=== PATIENT | male | born 1930 | race Caucasian/White ===

== ENCOUNTER 2018-01-18 10:17 | Inpatient (IN) | payer MEDICARE, OTHER, BC ==
[2018-01-18] MEDS ORDERED: ACETAMINOPHEN 325 MG TAB PO (12:30)
[2018-01-18 13:28] LABS: ADD MAN DIFF? NO
[2018-01-18 13:31] LABS: WHITE BLOOD COUNT 16.6 10^3/ul (4.8-10.8)
[2018-01-18 13:31] LABS: BASOPHIL # 0.1 10^3/ul (0.0-0.1); BASOPHILS % 0.4 % (0.0-2.0); EOSINOPHILS # 1.3 10^3/ul (0.0-0.5); EOSINOPHILS % 7.7 % (0.0-7.0); HEMATOCRIT 25.4 % (42.0-52.0); HEMOGLOBIN 8.2 g/dl (14.0-18.0); LYMPHOCYTES # 1.5 10^3/ul (0.8-2.9); LYMPHOCYTES % 8.8 % (15.0-51.0); MEAN CORPUSCULAR HEMOGLOBIN 25.5 pg (29.0-33.0); MEAN CORPUSCULAR HGB CONC 32.3 g/dl (32.0-37.0); MEAN CORPUSCULAR VOLUME 78.9 fl (82.0-101.0); MEAN PLATELET VOLUME 9.1 fl (7.4-10.4); MONOCYTE # 1.2 10^3/ul (0.3-0.9); MONOCYTES % 6.9 % (0.0-11.0); NEUTROPHIL # 12.6 10^3/ul (1.6-7.5); NEUTROPHILS % 75.7 % (39.0-77.0); PLATELET COUNT 407 10^3/UL (140-415); RED BLOOD COUNT 3.22 10^6/ul (4.70-6.10); RED CELL DISTRIBUTION WIDTH 16.3 % (11.5-14.5)
[2018-01-18 13:49] LABS: ALANINE AMINOTRANSFERASE 36 IU/L (13-69); ALBUMIN 2.4 g/dl (3.3-4.9); ALBUMIN/GLOBULIN RATIO 0.82; ALKALINE PHOSPHATASE 162 IU/L (42-121); ANION GAP 11 (8-16); ASPARTATE AMINO TRANSFERASE 21 IU/L (15-46); BLOOD UREA NITROGEN 19 mg/dl (7-20); CALCIUM 8.2 mg/dl (8.4-10.2); CARBON DIOXIDE 28 mmol/L (21-31); CHLORIDE 93 mmol/L (97-110); CREATININE 0.83 mg/dl (0.61-1.24); GLUCOSE 96 mg/dl (70-220); POTASSIUM 4.8 mmol/L (3.5-5.1); SODIUM 127 mmol/L (135-144); TOTAL PROTEIN 5.3 g/dl (6.1-8.1)
[2018-01-18 13:59] LABS: INR 1.18; PROTIME 15.2 Sec (11.9-14.9); PT RATIO 1.2
[2018-01-18 14:00] LABS: PARTIAL THROMBOPLASTIN TIME 34.6 Sec (25.0-35.0)
[2018-01-18] MEDS: EPOETIN 10000 UNITS/ML VIAL (ONCOLOGY) SC (14:09)
[2018-01-18] MEDS ORDERED: IOHEXOL 14.3 MG(I)/ML (ADULT) BTL PO (18:30)
[2018-01-18] MEDS: TRIAMCINOLONE ACET 0.025% 15 GM CR TOP (20:58)
[2018-01-18] MEDS: ATORVASTATIN 40 MG TAB PO (20:58)
[2018-01-18] MEDS: LATANOPROST 0.005% 2.5 ML OPH BOTH EYES (20:58)
[2018-01-18] MEDS: DORZOLAMIDE/TIMOLOL/PF 0.2 ML DROPERETTE BOTH EYES (21:00)
[2018-01-18] MEDS: DOXAZOSIN 2 MG TAB PO (21:00)
[2018-01-18 21:22] LABS: IRON 17 ug/dl (35-150); URIC ACID 3.9 mg/dl (3.1-7.9)
[2018-01-18 21:22] LABS: LACTATE DEHYDROGENASE 319 IU/L (313-618)
[2018-01-18 21:32] LABS: % IRON SATURATION 7 % SAT (22-52); TOTAL IRON BINDING CAPACITY 235 ug/dl (241-421)
[2018-01-18 21:35] LABS: IMMUNOGLOBULIN A 319 mg/dl (70-400); IMMUNOGLOBULIN G 955 mg/dl (700-1600); IMMUNOGLOBULIN M 48 mg/dl (40-230)
[2018-01-18 21:53] LABS: PROSTATE SPECIFIC ANTIGEN 4.4 ng/ml (0.0-4.0)
[2018-01-18 21:57] LABS: CARCINOEMBRYONIC ANTIGEN 25.7 ng/ml (0.0-5.0)
[2018-01-18 22:00] LABS: CANCER ANTIGEN 19-9 53.5 U/ml (0.0-37.0)
[2018-01-18 22:26] LABS: ADD UMIC NO; UR ASCORBIC ACID NEGATIVE (NEGATIVE); UR BACTERIA FEW /HPF (NONE SEEN); UR BILIRUBIN (Dip) NEGATIVE (NEGATIVE); UR BLOOD (Dip) NEGATIVE (NEGATIVE); UR CLARITY SLIGHTLY CLOUDY (CLEAR); UR COLOR YELLOW (YELLOW); UR GLUCOSE (Dip) NEGATIVE (NEGATIVE); UR KETONES (Dip) NEGATIVE (NEGATIVE); UR LEUKOCYTE ESTERASE (Dip) NEGATIVE Leu/ul (NEGATIVE); UR NITRITE (Dip) NEGATIVE (NEGATIVE); UR RBC 0 /HPF (0-5); UR SQUAMOUS EPITHELIAL CELL FEW /HPF (FEW); UR TOTAL PROTEIN (Dip) NEGATIVE (NEGATIVE); UR UROBILINOGEN (Dip) NEGATIVE (NEGATIVE); UR WBC 2 /HPF (0-5)
[2018-01-18 22:35] LABS: FERRITIN 31.6 ng/ml (11.1-264.0)
[2018-01-19] MEDS: PANTOPRAZOLE (EC) 40 MG TAB PO (06:01)
[2018-01-19] MEDS: TRIAMCINOLONE ACET 0.025% 15 GM CR TOP ×2 (08:13→21:42)
[2018-01-19] MEDS: DORZOLAMIDE/TIMOLOL/PF 0.2 ML DROPERETTE BOTH EYES ×2 (08:13→21:43)
[2018-01-19] MEDS: METOPROLOL 50 MG TAB PO (08:19)
[2018-01-19 11:31] LABS: ADD MAN DIFF? NO
[2018-01-19 11:34] LABS: BASOPHIL # 0.1 10^3/ul (0.0-0.1); BASOPHILS % 0.4 % (0.0-2.0); EOSINOPHILS # 1.2 10^3/ul (0.0-0.5); EOSINOPHILS % 7.8 % (0.0-7.0); HEMOGLOBIN 8.1 g/dl (14.0-18.0); LYMPHOCYTES % 6.5 % (15.0-51.0); MEAN CORPUSCULAR HEMOGLOBIN 25.7 pg (29.0-33.0); MEAN CORPUSCULAR HGB CONC 32.4 g/dl (32.0-37.0); MEAN CORPUSCULAR VOLUME 79.4 fl (82.0-101.0); MEAN PLATELET VOLUME 8.9 fl (7.4-10.4); MONOCYTE # 1.3 10^3/ul (0.3-0.9); MONOCYTES % 8.1 % (0.0-11.0); NEUTROPHIL # 12.2 10^3/ul (1.6-7.5); NEUTROPHILS % 76.6 % (39.0-77.0); PLATELET COUNT 382 10^3/UL (140-415); RED BLOOD COUNT 3.15 10^6/ul (4.70-6.10); RED CELL DISTRIBUTION WIDTH 16.2 % (11.5-14.5)
[2018-01-19 11:34] LABS: WHITE BLOOD COUNT 15.9 10^3/ul (4.8-10.8)
[2018-01-19 11:52] LABS: ANION GAP 10 (8-16); BLOOD UREA NITROGEN 19 mg/dl (7-20); CALCIUM 7.9 mg/dl (8.4-10.2); CARBON DIOXIDE 27 mmol/L (21-31); CHLORIDE 94 mmol/L (97-110); CREATININE 0.79 mg/dl (0.61-1.24); GLUCOSE 117 mg/dl (70-220); MAGNESIUM 1.8 mg/dl (1.7-2.5); SODIUM 127 mmol/L (135-144)
[2018-01-19 14:38] LABS: OCCULT BLOOD STOOL POSITIVE (NEGATIVE)
[2018-01-19] MEDS: BISACODYL (EC) 5 MG TAB PO (15:11)
[2018-01-19] MEDS: MAGNESIUM CITRATE 300 ML BTL PO (16:00)
[2018-01-19] MEDS: POLYETHYLENE GLYCOL 3350 119 GM POWDER PO (18:07)
[2018-01-19] MEDS: LATANOPROST 0.005% 2.5 ML OPH BOTH EYES (21:42)
[2018-01-19] MEDS: PIPER-TAZO 3.375 GM IV (PMX) 100 ML IVPB (21:42)
[2018-01-19] MEDS: DOXAZOSIN 2 MG TAB PO (21:43)
[2018-01-19] MEDS: ATORVASTATIN 40 MG TAB PO (21:43)
[2018-01-20 05:22] LABS: PROTEIN, TOTAL 4.9 g/dL (6.1-8.1)
[2018-01-20] MEDS: POLYETHYLENE GLYCOL 3350 119 GM POWDER PO (06:07)
[2018-01-20] MEDS: PANTOPRAZOLE (EC) 40 MG TAB PO (06:07)
[2018-01-20] MEDS: PIPER-TAZO 3.375 GM IV (PMX) 100 ML IVPB ×3 (06:07→21:21)
[2018-01-20] MEDS: BISACODYL (EC) 5 MG TAB PO (06:07)
[2018-01-20 09:08] LABS: ADD MAN DIFF? NO
[2018-01-20 09:12] LABS: WHITE BLOOD COUNT 14.5 10^3/ul (4.8-10.8)
[2018-01-20 09:12] LABS: BASOPHIL # 0.1 10^3/ul (0.0-0.1); BASOPHILS % 0.6 % (0.0-2.0); EOSINOPHILS # 1.2 10^3/ul (0.0-0.5); EOSINOPHILS % 8.1 % (0.0-7.0); HEMATOCRIT 25.4 % (42.0-52.0); HEMOGLOBIN 8.1 g/dl (14.0-18.0); LYMPHOCYTES # 1.3 10^3/ul (0.8-2.9); LYMPHOCYTES % 8.9 % (15.0-51.0); MEAN CORPUSCULAR HEMOGLOBIN 25.1 pg (29.0-33.0); MEAN CORPUSCULAR HGB CONC 31.9 g/dl (32.0-37.0); MEAN CORPUSCULAR VOLUME 78.6 fl (82.0-101.0); MEAN PLATELET VOLUME 9.1 fl (7.4-10.4); MONOCYTE # 1.1 10^3/ul (0.3-0.9); MONOCYTES % 7.5 % (0.0-11.0); NEUTROPHIL # 10.8 10^3/ul (1.6-7.5); NEUTROPHILS % 74.4 % (39.0-77.0); PLATELET COUNT 416 10^3/UL (140-415); RED BLOOD COUNT 3.23 10^6/ul (4.70-6.10); RED CELL DISTRIBUTION WIDTH 16.6 % (11.5-14.5)
[2018-01-20 09:33] LABS: ANION GAP 11 (8-16); BLOOD UREA NITROGEN 16 mg/dl (7-20); CARBON DIOXIDE 28 mmol/L (21-31); CHLORIDE 94 mmol/L (97-110); CREATININE 0.86 mg/dl (0.61-1.24); GLUCOSE 81 mg/dl (70-220); MAGNESIUM 1.9 mg/dl (1.7-2.5); SODIUM 129 mmol/L (135-144)
[2018-01-20] MEDS: METOPROLOL 50 MG TAB PO (09:41)
[2018-01-20] MEDS: DORZOLAMIDE/TIMOLOL/PF 0.2 ML DROPERETTE BOTH EYES ×2 (09:41→21:21)
[2018-01-20] MEDS: TRIAMCINOLONE ACET 0.025% 15 GM CR TOP ×2 (09:42→21:21)
[2018-01-20 16:05] LABS: ALBUMIN 2.1 g/dL (3.8-4.8); ALPHA-1-GLOBULINS 0.6 g/dL (0.2-0.3); ALPHA-2-GLOBULINS 0.6 g/dL (0.5-0.9); BETA 2 GLOBULINS 0.4 g/dL (0.2-0.5); BETA GLOBULINS 0.4 g/dL (0.4-0.6)
[2018-01-20 16:47] LABS: BETA-2 MICROGLOBULIN 4.41 mg/L (< OR = 2.51)
[2018-01-20] MEDS: DOXAZOSIN 2 MG TAB PO (21:00)
[2018-01-20] MEDS: ATORVASTATIN 40 MG TAB PO (21:21)
[2018-01-20] MEDS: LATANOPROST 0.005% 2.5 ML OPH BOTH EYES (21:23)
[2018-01-21] MEDS: PANTOPRAZOLE (EC) 40 MG TAB PO (05:48)
[2018-01-21] MEDS: PIPER-TAZO 3.375 GM IV (PMX) 100 ML IVPB ×2 (05:49→13:12)
[2018-01-21] MEDS ORDERED: ACETAMINOPHEN 1000 MG/100 ML IVPB (07:00)
[2018-01-21] MEDS ORDERED: ALBUMIN HUMAN 5% 250 ML INJ (07:00)
[2018-01-21] MEDS: PROPOFOL 20 ML (08:37)
[2018-01-21] MEDS: DORZOLAMIDE/TIMOLOL/PF 0.2 ML DROPERETTE BOTH EYES ×2 (08:38→21:00)
[2018-01-21] MEDS: METOPROLOL 50 MG TAB PO (08:38)
[2018-01-21] MEDS: TRIAMCINOLONE ACET 0.025% 15 GM CR TOP ×2 (08:38→21:00)
[2018-01-21] MEDS: DIPHENHYDRAMINE 50 MG INJ IV (11:01)
[2018-01-21] MEDS: ACETAMINOPHEN 325 MG TAB PO (11:01)
[2018-01-21] MEDS ORDERED: PROPOFOL 20 ML (17:38)
[2018-01-21] MEDS ORDERED: FENTAnyl 50 MCG/ML VIAL (17:38)
[2018-01-21] MEDS ORDERED: MIDAZOLAM 1 MG/ML 2 ML INJ (17:38)
[2018-01-21] MEDS ORDERED: ROCURONIUM 50 MG INJ ×3 (17:38→19:58)
[2018-01-21] MEDS ORDERED: BUPIVACAINE 0.5% (SDV) 30 ML INJ (18:28)
[2018-01-21] MEDS ORDERED: LIDOCAINE 1%/EPI 30 ML INJ (18:28)
[2018-01-21 18:41] LABS: IMMEDIATE SPIN CROSSMATCH 1 2
[2018-01-21] MEDS ORDERED: PHENYLephrine (100 MCG/ML) 5ML SYG (19:27)
[2018-01-21] MEDS ORDERED: morphine SULFATE/PF (10 MG/10 ML) INJ (19:27)
[2018-01-21] MEDS ORDERED: ONDANSETRON 4 MG INJ (19:31)
[2018-01-21] MEDS ORDERED: DEXAMETHASONE 4 MG/ML 1 ML INJ (19:31)
[2018-01-21] MEDS ORDERED: METOCLOPRAMIDE 10 MG INJ (19:31)
[2018-01-21] MEDS ORDERED: ROPIVACAINE 0.2% 20 ML VIAL (19:31)
[2018-01-21] MEDS ORDERED: NALOXONE (0.4 MG/ML) INJ IV (20:30)
[2018-01-21] MEDS ORDERED: ONDANSETRON 4 MG INJ IV ×2 (20:30)
[2018-01-21] MEDS ORDERED: HYDROmorphONE 0.5 MG/0.5 ML SYG IV ×2 (20:30)
[2018-01-21] MEDS ORDERED: METOCLOPRAMIDE 10 MG INJ IV (20:30)
[2018-01-21] MEDS ORDERED: HYDROmorphONE (0.2 MG/ML) 10ML SYG IV ×3 (20:30)
[2018-01-21] MEDS ORDERED: EPHEDrine SULFATE 50 MG/5 ML SYG IV (20:30)
[2018-01-21] MEDS ORDERED: DIPHENHYDRAMINE 50 MG INJ IV ×2 (20:30)
[2018-01-21] MEDS ORDERED: NALBUPHINE HCL (10 MG/1 ML) INJ IV (20:30)
[2018-01-21] MEDS ORDERED: FENTAnyl 50 MCG/ML VIAL IV ×3 (20:30)
[2018-01-21] MEDS ORDERED: MEPERIDINE 25 MG INJ IV (20:30)
[2018-01-21] MEDS ORDERED: morphine 2 MG INJ IV ×2 (20:30)
[2018-01-21] MEDS ORDERED: hydrALAzine 20 MG INJ IV (20:30)
[2018-01-21] MEDS ORDERED: LABETALOL HCL 20MG INJ IV (20:30)
[2018-01-21] MEDS: DOXAZOSIN 2 MG TAB PO (21:00)
[2018-01-21] MEDS: LATANOPROST 0.005% 2.5 ML OPH BOTH EYES (21:00)
[2018-01-21] MEDS ORDERED: SUGAMMADEX SODIUM 200 MG/2 ML VIAL IV ×2 (21:08→21:10)
[2018-01-21 21:10] LABS: AADO2 Arterial 257.9 mmHg (7.0-24.0); Allen Test ACCEPTAB; Arterial Base Excess -5.3 mmol/L (-3.0-3); Arterial Blood Gas Oxygen Sat 99.2 mmHG (95.0-100.0); Arterial COHb 0.7 % (0.0-3.0); Arterial Fraction of Oxyhgb 98.3 % (93.0-99.0); Arterial HCO3 21.3 mmol/L (22.0-26.0); Arterial MetHb 0.2 % (0.0-1.5); Arterial Total Hemglobin 10.1 g/dl (12.0-18.0); Arterial pCO2 46.3 mmhg (35-45); MODE ANESTH - VENT; Site A-Line
[2018-01-21] MEDS: ACETAMINOPHEN 1000MG/100ML IV 100 ML IVPB (21:30)
[2018-01-21] MEDS: LIDOCAINE 1%/EPI 30 ML INJ INJ (21:42)
[2018-01-21] MEDS: SODIUM CHLORIDE 0.9% 1L IRRIG IRR (21:42)
[2018-01-21] MEDS: BUPIVACAINE 0.5% (MPF) 30 ML INJ INJ (21:42)
[2018-01-21 22:05] LABS: ADD MAN DIFF? NO
[2018-01-21 22:07] LABS: BASOPHILS % 0.3 % (0.0-2.0); EOSINOPHILS # 0.2 10^3/ul (0.0-0.5); EOSINOPHILS % 1.6 % (0.0-7.0); HEMATOCRIT 28.2 % (42.0-52.0); HEMOGLOBIN 9.4 g/dl (14.0-18.0); LYMPHOCYTES # 0.7 10^3/ul (0.8-2.9); LYMPHOCYTES % 5.8 % (15.0-51.0); MEAN CORPUSCULAR HEMOGLOBIN 26.7 pg (29.0-33.0); MEAN CORPUSCULAR HGB CONC 33.3 g/dl (32.0-37.0); MEAN CORPUSCULAR VOLUME 80.1 fl (82.0-101.0); MEAN PLATELET VOLUME 8.4 fl (7.4-10.4); MONOCYTE # 0.3 10^3/ul (0.3-0.9); MONOCYTES % 2.5 % (0.0-11.0); NEUTROPHIL # 10.6 10^3/ul (1.6-7.5); NEUTROPHILS % 89.4 % (39.0-77.0); PLATELET COUNT 286 10^3/UL (140-415); RED BLOOD COUNT 3.52 10^6/ul (4.70-6.10); RED CELL DISTRIBUTION WIDTH 15.7 % (11.5-14.5)
[2018-01-21 22:07] LABS: WHITE BLOOD COUNT 11.8 10^3/ul (4.8-10.8)
[2018-01-21 22:26] LABS: ANION GAP 12 (8-16); BLOOD UREA NITROGEN 13 mg/dl (7-20); CARBON DIOXIDE 20 mmol/L (21-31); CHLORIDE 102 mmol/L (97-110); CREATININE 0.78 mg/dl (0.61-1.24); GLUCOSE 82 mg/dl (70-220); POTASSIUM 3.4 mmol/L (3.5-5.1); SODIUM 131 mmol/L (135-144)
[2018-01-22] MEDS: PIPER-TAZO 3.375 GM IV (PMX) 100 ML IVPB ×4 (00:42→22:08)
[2018-01-22 06:11] LABS: ADD MAN DIFF? NO
[2018-01-22 06:13] LABS: BASOPHILS % 0.2 % (0.0-2.0); EOSINOPHILS % 0.1 % (0.0-7.0); HEMATOCRIT 32.1 % (42.0-52.0); HEMOGLOBIN 10.3 g/dl (14.0-18.0); LYMPHOCYTES # 1.1 10^3/ul (0.8-2.9); LYMPHOCYTES % 9.5 % (15.0-51.0); MEAN CORPUSCULAR HEMOGLOBIN 26.3 pg (29.0-33.0); MEAN CORPUSCULAR HGB CONC 32.1 g/dl (32.0-37.0); MEAN CORPUSCULAR VOLUME 82.1 fl (82.0-101.0); MEAN PLATELET VOLUME 8.8 fl (7.4-10.4); MONOCYTE # 0.2 10^3/ul (0.3-0.9); NEUTROPHIL # 9.8 10^3/ul (1.6-7.5); NEUTROPHILS % 87.7 % (39.0-77.0); PLATELET COUNT 331 10^3/UL (140-415); RED BLOOD COUNT 3.91 10^6/ul (4.70-6.10); RED CELL DISTRIBUTION WIDTH 15.9 % (11.5-14.5)
[2018-01-22 06:13] LABS: WHITE BLOOD COUNT 11.2 10^3/ul (4.8-10.8)
[2018-01-22] MEDS: FENTAnyl 2MCG/ML-ROPIV 0.2% 100 ML BAG EPI ×2 (06:22→22:56)
[2018-01-22 06:36] LABS: ANION GAP 14 (8-16); BLOOD UREA NITROGEN 13 mg/dl (7-20); CALCIUM 7.4 mg/dl (8.4-10.2); CARBON DIOXIDE 22 mmol/L (21-31); CHLORIDE 102 mmol/L (97-110); CREATININE 0.88 mg/dl (0.61-1.24); GLUCOSE 81 mg/dl (70-220); POTASSIUM 3.7 mmol/L (3.5-5.1); SODIUM 134 mmol/L (135-144)
[2018-01-22] MEDS: PANTOPRAZOLE 40 MG INJ IV (06:38)
[2018-01-22] MEDS: ACETAMINOPHEN 1000MG/100ML IV 100 ML IVPB ×4 (06:38→21:54)
[2018-01-22] MEDS: DORZOLAMIDE/TIMOLOL/PF 0.2 ML DROPERETTE BOTH EYES ×2 (09:00→21:50)
[2018-01-22] MEDS: TRIAMCINOLONE ACET 0.025% 15 GM CR TOP ×2 (09:00→21:52)
[2018-01-22] MEDS: METOPROLOL 50 MG TAB PO (10:15)
[2018-01-22] MEDS: DEXTROSE 5%-0.45% NACL 1,000 ML IV (13:54)
[2018-01-22] MEDS: DOXAZOSIN 2 MG TAB PO (21:00)
[2018-01-22] MEDS: LATANOPROST 0.005% 2.5 ML OPH BOTH EYES (21:42)
[2018-01-22 23:07] LABS: ADD UMIC YES; UR ASCORBIC ACID NEGATIVE (NEGATIVE); UR BILIRUBIN (Dip) NEGATIVE (NEGATIVE); UR BLOOD (Dip) 2+ mg/dL (NEGATIVE); UR CLARITY CLEAR (CLEAR); UR COLOR YELLOW (YELLOW); UR GLUCOSE (Dip) NEGATIVE (NEGATIVE); UR KETONES (Dip) 1+ mg/dL (NEGATIVE); UR LEUKOCYTE ESTERASE (Dip) NEGATIVE Leu/ul (NEGATIVE); UR NITRITE (Dip) NEGATIVE (NEGATIVE); UR RBC 22 /HPF (0-5); UR SPECIFIC GRAVITY (Dip) 1.035 (1.003-1.030); UR TOTAL PROTEIN (Dip) NEGATIVE (NEGATIVE); UR UROBILINOGEN (Dip) NEGATIVE (NEGATIVE); UR WBC 11 /HPF (0-5)
[2018-01-23] MEDS: ACETAMINOPHEN 1000MG/100ML IV 100 ML IVPB ×4 (03:10→21:55)
[2018-01-23] MEDS: DEXTROSE 5%-0.45% NACL 1,000 ML IV ×3 (04:02→19:57)
[2018-01-23 06:43] LABS: ADD MAN DIFF? NO
[2018-01-23 06:47] LABS: BASOPHIL # 0.1 10^3/ul (0.0-0.1); BASOPHILS % 0.7 % (0.0-2.0); EOSINOPHILS # 0.4 10^3/ul (0.0-0.5); EOSINOPHILS % 4.6 % (0.0-7.0); HEMATOCRIT 29.2 % (42.0-52.0); HEMOGLOBIN 9.4 g/dl (14.0-18.0); LYMPHOCYTES % 12.3 % (15.0-51.0); MEAN CORPUSCULAR HEMOGLOBIN 26.2 pg (29.0-33.0); MEAN CORPUSCULAR HGB CONC 32.2 g/dl (32.0-37.0); MEAN CORPUSCULAR VOLUME 81.3 fl (82.0-101.0); MEAN PLATELET VOLUME 8.7 fl (7.4-10.4); MONOCYTE # 0.6 10^3/ul (0.3-0.9); MONOCYTES % 7.4 % (0.0-11.0); NEUTROPHIL # 6.1 10^3/ul (1.6-7.5); NEUTROPHILS % 74.6 % (39.0-77.0); PLATELET COUNT 290 10^3/UL (140-415); RED BLOOD COUNT 3.59 10^6/ul (4.70-6.10); RED CELL DISTRIBUTION WIDTH 16.4 % (11.5-14.5)
[2018-01-23 06:47] LABS: WHITE BLOOD COUNT 8.2 10^3/ul (4.8-10.8)
[2018-01-23] MEDS: PANTOPRAZOLE 40 MG INJ IV (06:48)
[2018-01-23] MEDS: PIPER-TAZO 3.375 GM IV (PMX) 100 ML IVPB ×3 (06:48→21:55)
[2018-01-23 07:10] LABS: ALANINE AMINOTRANSFERASE 31 IU/L (13-69); ALBUMIN 1.9 g/dl (3.3-4.9); ALBUMIN/GLOBULIN RATIO 0.79; ALKALINE PHOSPHATASE 121 IU/L (42-121); ANION GAP 11 (8-16); ASPARTATE AMINO TRANSFERASE 16 IU/L (15-46); BLOOD UREA NITROGEN 18 mg/dl (7-20); CALCIUM 7.3 mg/dl (8.4-10.2); CARBON DIOXIDE 22 mmol/L (21-31); CHLORIDE 102 mmol/L (97-110); CREATININE 1.13 mg/dl (0.61-1.24); GLUCOSE 115 mg/dl (70-220); POTASSIUM 3.7 mmol/L (3.5-5.1); SODIUM 131 mmol/L (135-144); TOTAL PROTEIN 4.3 g/dl (6.1-8.1)
[2018-01-23 07:12] LABS: B-TYPE NATRIURETIC PEPTIDE 2000 PG/ML (0-450)
[2018-01-23] MEDS: TRIAMCINOLONE ACET 0.025% 15 GM CR TOP ×2 (09:35→21:00)
[2018-01-23] MEDS: DORZOLAMIDE/TIMOLOL/PF 0.2 ML DROPERETTE BOTH EYES ×2 (09:35→21:55)
[2018-01-23] MEDS: FUROSEMIDE 20 MG INJ IV (09:46)
[2018-01-23] MEDS: SODIUM CHLORIDE 0.45% 500 ML BAG IV* (09:46)
[2018-01-23] MEDS ORDERED: ENOXAPARIN 40 MG/0.4 ML SYG SC (11:00)
[2018-01-23] MEDS: FENTAnyl 2MCG/ML-ROPIV 0.2% 100 ML BAG EPI (15:43)
[2018-01-23] MEDS: DOXAZOSIN 2 MG TAB PO (21:00)
[2018-01-23] MEDS: LATANOPROST 0.005% 2.5 ML OPH BOTH EYES (21:55)
[2018-01-24] MEDS: ACETAMINOPHEN 1000MG/100ML IV 100 ML IVPB ×4 (03:36→22:05)
[2018-01-24] MEDS: PANTOPRAZOLE 40 MG INJ IV (05:37)
[2018-01-24] MEDS: PIPER-TAZO 3.375 GM IV (PMX) 100 ML IVPB ×3 (05:37→22:04)
[2018-01-24] MEDS: DEXTROSE 5%-0.45% NACL 1,000 ML IV ×3 (05:37→22:04)
[2018-01-24] MEDS: FENTAnyl 2MCG/ML-ROPIV 0.2% 100 ML BAG EPI ×2 (06:57→23:04)
[2018-01-24] MEDS: FUROSEMIDE 20 MG INJ IV (08:00)
[2018-01-24 08:24] LABS: ADD MAN DIFF? NO
[2018-01-24 08:44] LABS: BASOPHIL # 0.1 10^3/ul (0.0-0.1); BASOPHILS % 0.7 % (0.0-2.0); EOSINOPHILS # 0.5 10^3/ul (0.0-0.5); EOSINOPHILS % 5.5 % (0.0-7.0); HEMATOCRIT 29.4 % (42.0-52.0); HEMOGLOBIN 9.2 g/dl (14.0-18.0); LYMPHOCYTES # 1.2 10^3/ul (0.8-2.9); LYMPHOCYTES % 13.6 % (15.0-51.0); MEAN CORPUSCULAR HEMOGLOBIN 25.8 pg (29.0-33.0); MEAN CORPUSCULAR HGB CONC 31.3 g/dl (32.0-37.0); MEAN CORPUSCULAR VOLUME 82.6 fl (82.0-101.0); MEAN PLATELET VOLUME 9.2 fl (7.4-10.4); MONOCYTE # 0.6 10^3/ul (0.3-0.9); MONOCYTES % 6.4 % (0.0-11.0); NEUTROPHIL # 6.3 10^3/ul (1.6-7.5); NEUTROPHILS % 73.3 % (39.0-77.0); PLATELET COUNT 275 10^3/UL (140-415); RED BLOOD COUNT 3.56 10^6/ul (4.70-6.10)
[2018-01-24 08:44] LABS: WHITE BLOOD COUNT 8.7 10^3/ul (4.8-10.8)
[2018-01-24] MEDS ORDERED: ENOXAPARIN 40 MG/0.4 ML SYG SC (09:00)
[2018-01-24] MEDS: TRIAMCINOLONE ACET 0.025% 15 GM CR TOP ×3 (09:00→22:24)
[2018-01-24 09:01] LABS: ALANINE AMINOTRANSFERASE 30 IU/L (13-69); ALBUMIN 2.1 g/dl (3.3-4.9); ALKALINE PHOSPHATASE 145 IU/L (42-121); ANION GAP 10 (8-16); ASPARTATE AMINO TRANSFERASE 19 IU/L (15-46); BLOOD UREA NITROGEN 19 mg/dl (7-20); CALCIUM 7.4 mg/dl (8.4-10.2); CARBON DIOXIDE 22 mmol/L (21-31); CHLORIDE 102 mmol/L (97-110); CREATININE 1.13 mg/dl (0.61-1.24); GLUCOSE 96 mg/dl (70-220); POTASSIUM 3.3 mmol/L (3.5-5.1); SODIUM 131 mmol/L (135-144); TOTAL PROTEIN 4.7 g/dl (6.1-8.1)
[2018-01-24] MEDS: DORZOLAMIDE/TIMOLOL/PF 0.2 ML DROPERETTE BOTH EYES ×2 (09:01→22:19)
[2018-01-24 09:08] LABS: B-TYPE NATRIURETIC PEPTIDE 1720 PG/ML (0-450)
[2018-01-24] MEDS: POTASSIUM CHLORIDE (SR) 20 MEQ TAB PO (13:28)
[2018-01-24 14:29] LABS: MAGNESIUM 1.8 mg/dl (1.7-2.5)
[2018-01-24] MEDS: DOXAZOSIN 2 MG TAB PO (22:07)
[2018-01-24] MEDS: LATANOPROST 0.005% 2.5 ML OPH BOTH EYES (22:14)
[2018-01-25] MEDS: DEXTROSE 5%-0.45% NACL 1,000 ML IV ×3 (02:00→21:54)
[2018-01-25] MEDS: ACETAMINOPHEN 1000MG/100ML IV 100 ML IVPB ×4 (03:06→21:48)
[2018-01-25] MEDS: PANTOPRAZOLE 40 MG INJ IV (05:48)
[2018-01-25] MEDS: PIPER-TAZO 3.375 GM IV (PMX) 100 ML IVPB ×2 (05:49→13:05)
[2018-01-25] MEDS ORDERED: ENOXAPARIN 40 MG/0.4 ML SYG SC (09:00)
[2018-01-25] MEDS: DORZOLAMIDE/TIMOLOL/PF 0.2 ML DROPERETTE BOTH EYES ×2 (09:02→21:49)
[2018-01-25] MEDS: FUROSEMIDE 20 MG INJ IV (09:03)
[2018-01-25] MEDS: TRIAMCINOLONE ACET 0.025% 15 GM CR TOP ×2 (09:04→21:54)
[2018-01-25 09:11] LABS: ADD MAN DIFF? NO
[2018-01-25 09:18] LABS: WHITE BLOOD COUNT 7.6 10^3/ul (4.8-10.8)
[2018-01-25 09:18] LABS: BASOPHIL # 0.1 10^3/ul (0.0-0.1); BASOPHILS % 0.9 % (0.0-2.0); EOSINOPHILS # 0.7 10^3/ul (0.0-0.5); EOSINOPHILS % 8.8 % (0.0-7.0); HEMATOCRIT 31.3 % (42.0-52.0); HEMOGLOBIN 9.6 g/dl (14.0-18.0); LYMPHOCYTES # 1.3 10^3/ul (0.8-2.9); LYMPHOCYTES % 17.4 % (15.0-51.0); MEAN CORPUSCULAR HEMOGLOBIN 25.9 pg (29.0-33.0); MEAN CORPUSCULAR HGB CONC 30.7 g/dl (32.0-37.0); MEAN CORPUSCULAR VOLUME 84.4 fl (82.0-101.0); MEAN PLATELET VOLUME 8.9 fl (7.4-10.4); MONOCYTE # 0.5 10^3/ul (0.3-0.9); MONOCYTES % 6.7 % (0.0-11.0); NEUTROPHILS % 65.8 % (39.0-77.0); PLATELET COUNT 252 10^3/UL (140-415); RED BLOOD COUNT 3.71 10^6/ul (4.70-6.10); RED CELL DISTRIBUTION WIDTH 17.2 % (11.5-14.5)
[2018-01-25 09:52] LABS: ALANINE AMINOTRANSFERASE 33 IU/L (13-69); ALKALINE PHOSPHATASE 151 IU/L (42-121); ANION GAP 9 (8-16); ASPARTATE AMINO TRANSFERASE 35 IU/L (15-46); BILIRUBIN,TOTAL 0.3 mg/dl (0.2-1.3); BLOOD UREA NITROGEN 15 mg/dl (7-20); CALCIUM 7.5 mg/dl (8.4-10.2); CARBON DIOXIDE 22 mmol/L (21-31); CHLORIDE 104 mmol/L (97-110); CREATININE 0.92 mg/dl (0.61-1.24); GLUCOSE 86 mg/dl (70-220); SODIUM 131 mmol/L (135-144)
[2018-01-25 09:53] LABS: ALBUMIN 2.2 g/dl (3.3-4.9); ALBUMIN/GLOBULIN RATIO 0.84; BILIRUBIN,INDIRECT 0.3 mg/dl (0-1.1); TOTAL PROTEIN 4.8 g/dl (6.1-8.1)
[2018-01-25 10:08] LABS: MAGNESIUM 1.8 mg/dl (1.7-2.5)
[2018-01-25] MEDS ORDERED: EPOETIN SC (17:00)
[2018-01-25] MEDS: FENTAnyl 2MCG/ML-ROPIV 0.2% 100 ML BAG EPI (17:25)
[2018-01-25] MEDS: EPOETIN ALFA 1,000 UNITS/0.1 ML VIAL SC (17:39)
[2018-01-25] MEDS: LATANOPROST 0.005% 2.5 ML OPH BOTH EYES (21:49)
[2018-01-25] MEDS: DOXAZOSIN 2 MG TAB PO (21:57)
[2018-01-26] MEDS: ACETAMINOPHEN 1000MG/100ML IV 100 ML IVPB ×4 (04:36→20:55)
[2018-01-26] MEDS: PANTOPRAZOLE 40 MG INJ IV (06:18)
[2018-01-26] MEDS: FUROSEMIDE 20 MG INJ IV (10:12)
[2018-01-26] MEDS: TRIAMCINOLONE ACET 0.025% 15 GM CR TOP ×2 (10:16→20:54)
[2018-01-26 10:32] LABS: ADD MAN DIFF? NO
[2018-01-26 10:33] LABS: BASOPHIL # 0.1 10^3/ul (0.0-0.1); BASOPHILS % 0.9 % (0.0-2.0); EOSINOPHILS % 13.8 % (0.0-7.0); HEMATOCRIT 32.1 % (42.0-52.0); HEMOGLOBIN 10.1 g/dl (14.0-18.0); LYMPHOCYTES # 1.5 10^3/ul (0.8-2.9); LYMPHOCYTES % 19.8 % (15.0-51.0); MEAN CORPUSCULAR HEMOGLOBIN 26.1 pg (29.0-33.0); MEAN CORPUSCULAR HGB CONC 31.5 g/dl (32.0-37.0); MEAN CORPUSCULAR VOLUME 82.9 fl (82.0-101.0); MEAN PLATELET VOLUME 9.4 fl (7.4-10.4); MONOCYTE # 0.4 10^3/ul (0.3-0.9); MONOCYTES % 5.8 % (0.0-11.0); NEUTROPHIL # 4.4 10^3/ul (1.6-7.5); NEUTROPHILS % 59.3 % (39.0-77.0); PLATELET COUNT 270 10^3/UL (140-415); RED BLOOD COUNT 3.87 10^6/ul (4.70-6.10); RED CELL DISTRIBUTION WIDTH 17.8 % (11.5-14.5)
[2018-01-26 10:33] LABS: WHITE BLOOD COUNT 7.4 10^3/ul (4.8-10.8)
[2018-01-26 11:04] LABS: ALANINE AMINOTRANSFERASE 32 IU/L (13-69); ALBUMIN 2.1 g/dl (3.3-4.9); ALBUMIN/GLOBULIN RATIO 0.75; ALKALINE PHOSPHATASE 147 IU/L (42-121); ANION GAP 10 (8-16); ASPARTATE AMINO TRANSFERASE 24 IU/L (15-46); BILIRUBIN,INDIRECT 0.1 mg/dl (0-1.1); BILIRUBIN,TOTAL 0.1 mg/dl (0.2-1.3); BLOOD UREA NITROGEN 12 mg/dl (7-20); CALCIUM 7.1 mg/dl (8.4-10.2); CARBON DIOXIDE 26 mmol/L (21-31); CHLORIDE 98 mmol/L (97-110); CREATININE 0.78 mg/dl (0.61-1.24); GLUCOSE 88 mg/dl (70-220); MAGNESIUM 1.6 mg/dl (1.7-2.5); POTASSIUM 3.8 mmol/L (3.5-5.1); SODIUM 130 mmol/L (135-144); TOTAL PROTEIN 4.9 g/dl (6.1-8.1)
[2018-01-26] MEDS: DORZOLAMIDE/TIMOLOL/PF 0.2 ML DROPERETTE BOTH EYES ×2 (12:34→20:52)
[2018-01-26] MEDS: MAGNESIUM SULFATE 2 GM/50 ML 50 ML IVPB (15:18)
[2018-01-26] MEDS: DOXAZOSIN 2 MG TAB PO (20:52)
[2018-01-26] MEDS: LATANOPROST 0.005% 2.5 ML OPH BOTH EYES (20:52)
[2018-01-27] MEDS: ACETAMINOPHEN 1000MG/100ML IV 100 ML IVPB ×4 (03:44→21:07)
[2018-01-27] MEDS: PANTOPRAZOLE 40 MG INJ IV (05:33)
[2018-01-27 08:25] LABS: ADD MAN DIFF? NO
[2018-01-27 08:32] LABS: WHITE BLOOD COUNT 9.4 10^3/ul (4.8-10.8)
[2018-01-27 08:32] LABS: BASOPHIL # 0.1 10^3/ul (0.0-0.1); BASOPHILS % 1.3 % (0.0-2.0); EOSINOPHILS # 1.1 10^3/ul (0.0-0.5); HEMATOCRIT 31.8 % (42.0-52.0); HEMOGLOBIN 10.2 g/dl (14.0-18.0); LYMPHOCYTES # 2.2 10^3/ul (0.8-2.9); LYMPHOCYTES % 23.1 % (15.0-51.0); MEAN CORPUSCULAR HEMOGLOBIN 25.9 pg (29.0-33.0); MEAN CORPUSCULAR HGB CONC 32.1 g/dl (32.0-37.0); MEAN CORPUSCULAR VOLUME 80.7 fl (82.0-101.0); MEAN PLATELET VOLUME 9.3 fl (7.4-10.4); MONOCYTE # 0.6 10^3/ul (0.3-0.9); MONOCYTES % 6.6 % (0.0-11.0); NEUTROPHIL # 5.3 10^3/ul (1.6-7.5); NEUTROPHILS % 56.6 % (39.0-77.0); PLATELET COUNT 284 10^3/UL (140-415); RED BLOOD COUNT 3.94 10^6/ul (4.70-6.10); RED CELL DISTRIBUTION WIDTH 18.2 % (11.5-14.5)
[2018-01-27 08:53] LABS: ANION GAP 6 (8-16); BLOOD UREA NITROGEN 12 mg/dl (7-20); CALCIUM 8.1 mg/dl (8.4-10.2); CARBON DIOXIDE 32 mmol/L (21-31); CHLORIDE 98 mmol/L (97-110); CREATININE 0.85 mg/dl (0.61-1.24); GLUCOSE 94 mg/dl (70-220); MAGNESIUM 1.9 mg/dl (1.7-2.5); SODIUM 132 mmol/L (135-144)
[2018-01-27] MEDS: DORZOLAMIDE/TIMOLOL/PF 0.2 ML DROPERETTE BOTH EYES ×2 (09:12→20:01)
[2018-01-27] MEDS: FUROSEMIDE 20 MG INJ IV (09:12)
[2018-01-27] MEDS: TRIAMCINOLONE ACET 0.025% 15 GM CR TOP ×2 (09:13→20:02)
[2018-01-27] MEDS: [UNRECOGNIZED DRUG - REMARK] XX ×2 (10:00→18:00)
[2018-01-27] MEDS: EPOETIN ALFA 1,000 UNITS/0.1 ML VIAL SC (17:15)
[2018-01-27] MEDS: LATANOPROST 0.005% 2.5 ML OPH BOTH EYES (20:01)
[2018-01-27] MEDS: DOXAZOSIN 2 MG TAB PO (20:02)
[2018-01-28] MEDS: [UNRECOGNIZED DRUG - REMARK] XX (01:35)
[2018-01-28] MEDS: ACETAMINOPHEN 1000MG/100ML IV 100 ML IVPB ×4 (02:30→20:32)
[2018-01-28] MEDS: PANTOPRAZOLE 40 MG INJ IV (05:27)
[2018-01-28 05:40] LABS: ADD MAN DIFF? NO
[2018-01-28 06:06] LABS: BASOPHIL # 0.1 10^3/ul (0.0-0.1); EOSINOPHILS # 1.1 10^3/ul (0.0-0.5); EOSINOPHILS % 11.9 % (0.0-7.0); HEMATOCRIT 28.6 % (42.0-52.0); HEMOGLOBIN 9.3 g/dl (14.0-18.0); LYMPHOCYTES # 2.5 10^3/ul (0.8-2.9); LYMPHOCYTES % 26.8 % (15.0-51.0); MEAN CORPUSCULAR HEMOGLOBIN 26.6 pg (29.0-33.0); MEAN CORPUSCULAR HGB CONC 32.5 g/dl (32.0-37.0); MEAN CORPUSCULAR VOLUME 81.7 fl (82.0-101.0); MEAN PLATELET VOLUME 9.4 fl (7.4-10.4); MONOCYTE # 0.7 10^3/ul (0.3-0.9); MONOCYTES % 7.1 % (0.0-11.0); NEUTROPHIL # 4.9 10^3/ul (1.6-7.5); NEUTROPHILS % 52.9 % (39.0-77.0); PLATELET COUNT 263 10^3/UL (140-415); RED CELL DISTRIBUTION WIDTH 18.2 % (11.5-14.5)
[2018-01-28 06:06] LABS: WHITE BLOOD COUNT 9.2 10^3/ul (4.8-10.8)
[2018-01-28 06:18] LABS: ANION GAP 9 (8-16); BLOOD UREA NITROGEN 15 mg/dl (7-20); CALCIUM 7.8 mg/dl (8.4-10.2); CARBON DIOXIDE 28 mmol/L (21-31); CHLORIDE 95 mmol/L (97-110); CREATININE 0.89 mg/dl (0.61-1.24); GLUCOSE 87 mg/dl (70-220); MAGNESIUM 1.7 mg/dl (1.7-2.5); POTASSIUM 4.4 mmol/L (3.5-5.1); SODIUM 128 mmol/L (135-144)
[2018-01-28] MEDS: DORZOLAMIDE/TIMOLOL/PF 0.2 ML DROPERETTE BOTH EYES ×2 (09:18→20:19)
[2018-01-28] MEDS: MAGNESIUM SULFATE 2 GM/50 ML 50 ML IVPB (10:00)
[2018-01-28] MEDS: TRIAMCINOLONE ACET 0.025% 15 GM CR TOP ×2 (10:25→20:19)
[2018-01-28 14:30] LABS: HEMATOCRIT 28.4 % (42.0-52.0); HEMOGLOBIN 9.1 g/dl (14.0-18.0)
[2018-01-28 14:51] LABS: INR 0.99; PARTIAL THROMBOPLASTIN TIME 32.9 Sec (25.0-35.0); PROTIME 13.2 Sec (11.9-14.9)
[2018-01-28 18:10] LABS: HEMATOCRIT 28.1 % (42.0-52.0); HEMOGLOBIN 9.1 g/dl (14.0-18.0)
[2018-01-28] MEDS: LATANOPROST 0.005% 2.5 ML OPH BOTH EYES (20:18)
[2018-01-28] MEDS: DOXAZOSIN 2 MG TAB PO (20:21)
[2018-01-29] MEDS: ACETAMINOPHEN 1000MG/100ML IV 100 ML IVPB ×4 (03:30→21:16)
[2018-01-29] MEDS: PANTOPRAZOLE 40 MG INJ IV (05:41)
[2018-01-29 06:36] LABS: HEMATOCRIT 25.4 % (42.0-52.0); HEMOGLOBIN 8.3 g/dl (14.0-18.0)
[2018-01-29 07:01] LABS: ANION GAP 5 (8-16); BLOOD UREA NITROGEN 15 mg/dl (7-20); CALCIUM 7.7 mg/dl (8.4-10.2); CARBON DIOXIDE 28 mmol/L (21-31); CHLORIDE 97 mmol/L (97-110); CREATININE 0.86 mg/dl (0.61-1.24); GLUCOSE 80 mg/dl (70-220); POTASSIUM 4.1 mmol/L (3.5-5.1); SODIUM 126 mmol/L (135-144)
[2018-01-29] MEDS: DORZOLAMIDE/TIMOLOL/PF 0.2 ML DROPERETTE BOTH EYES ×2 (08:49→21:13)
[2018-01-29] MEDS: TRIAMCINOLONE ACET 0.025% 15 GM CR TOP ×2 (08:50→21:27)
[2018-01-29 12:40] LABS: HEMATOCRIT 27.5 % (42.0-52.0); HEMOGLOBIN 8.9 g/dl (14.0-18.0)
[2018-01-29] MEDS: EPOETIN ALFA 1,000 UNITS/0.1 ML VIAL SC (17:55)
[2018-01-29 18:43] LABS: HEMATOCRIT 25.6 % (42.0-52.0); HEMOGLOBIN 8.2 g/dl (14.0-18.0)
[2018-01-29] MEDS: LATANOPROST 0.005% 2.5 ML OPH BOTH EYES (21:13)
[2018-01-29] MEDS: DOXAZOSIN 2 MG TAB PO (21:15)
[2018-01-30] MEDS: ACETAMINOPHEN 1000MG/100ML IV 100 ML IVPB ×4 (03:30→21:30)
[2018-01-30] MEDS: PANTOPRAZOLE 40 MG INJ IV (06:02)
[2018-01-30 07:26] LABS: ADD MAN DIFF? NO
[2018-01-30 07:34] LABS: BASOPHIL # 0.1 10^3/ul (0.0-0.1); EOSINOPHILS # 0.9 10^3/ul (0.0-0.5); EOSINOPHILS % 11.4 % (0.0-7.0); HEMATOCRIT 27.6 % (42.0-52.0); HEMOGLOBIN 8.8 g/dl (14.0-18.0); LYMPHOCYTES # 1.7 10^3/ul (0.8-2.9); LYMPHOCYTES % 20.6 % (15.0-51.0); MEAN CORPUSCULAR HEMOGLOBIN 26.2 pg (29.0-33.0); MEAN CORPUSCULAR HGB CONC 31.9 g/dl (32.0-37.0); MEAN CORPUSCULAR VOLUME 82.1 fl (82.0-101.0); MEAN PLATELET VOLUME 9.3 fl (7.4-10.4); MONOCYTE # 0.6 10^3/ul (0.3-0.9); MONOCYTES % 7.2 % (0.0-11.0); NEUTROPHIL # 4.8 10^3/ul (1.6-7.5); NEUTROPHILS % 59.2 % (39.0-77.0); PLATELET COUNT 283 10^3/UL (140-415); RED BLOOD COUNT 3.36 10^6/ul (4.70-6.10); RED CELL DISTRIBUTION WIDTH 18.7 % (11.5-14.5)
[2018-01-30 07:34] LABS: WHITE BLOOD COUNT 8.2 10^3/ul (4.8-10.8)
[2018-01-30 07:53] LABS: ANION GAP 10 (8-16); BLOOD UREA NITROGEN 11 mg/dl (7-20); CALCIUM 7.8 mg/dl (8.4-10.2); CARBON DIOXIDE 25 mmol/L (21-31); CHLORIDE 95 mmol/L (97-110); CREATININE 0.86 mg/dl (0.61-1.24); GLUCOSE 85 mg/dl (70-220); MAGNESIUM 1.8 mg/dl (1.7-2.5); POTASSIUM 3.6 mmol/L (3.5-5.1); SODIUM 126 mmol/L (135-144)
[2018-01-30] MEDS: DORZOLAMIDE/TIMOLOL/PF 0.2 ML DROPERETTE BOTH EYES ×2 (08:36→22:56)
[2018-01-30] MEDS: TRIAMCINOLONE ACET 0.025% 15 GM CR TOP ×2 (08:37→22:51)
[2018-01-30] MEDS: DOXAZOSIN 2 MG TAB PO (22:50)
[2018-01-30] MEDS: LATANOPROST 0.005% 2.5 ML OPH BOTH EYES (22:51)
[2018-01-30] MEDS: FUROSEMIDE 20 MG INJ IV (22:55)
[2018-01-31] MEDS: ACETAMINOPHEN 1000MG/100ML IV 100 ML IVPB ×2 (03:13→08:49)
[2018-01-31] MEDS: PANTOPRAZOLE 40 MG INJ IV (06:26)
[2018-01-31 07:51] LABS: ADD MAN DIFF? NO
[2018-01-31 08:04] LABS: BASOPHIL # 0.1 10^3/ul (0.0-0.1); BASOPHILS % 1.3 % (0.0-2.0); EOSINOPHILS # 0.7 10^3/ul (0.0-0.5); EOSINOPHILS % 8.8 % (0.0-7.0); HEMATOCRIT 26.7 % (42.0-52.0); HEMOGLOBIN 8.6 g/dl (14.0-18.0); LYMPHOCYTES # 1.9 10^3/ul (0.8-2.9); LYMPHOCYTES % 24.5 % (15.0-51.0); MEAN CORPUSCULAR HEMOGLOBIN 26.3 pg (29.0-33.0); MEAN CORPUSCULAR HGB CONC 32.2 g/dl (32.0-37.0); MEAN CORPUSCULAR VOLUME 81.7 fl (82.0-101.0); MEAN PLATELET VOLUME 9.5 fl (7.4-10.4); MONOCYTE # 0.8 10^3/ul (0.3-0.9); MONOCYTES % 9.8 % (0.0-11.0); NEUTROPHIL # 4.3 10^3/ul (1.6-7.5); NEUTROPHILS % 55.1 % (39.0-77.0); PLATELET COUNT 329 10^3/UL (140-415); RED BLOOD COUNT 3.27 10^6/ul (4.70-6.10); RED CELL DISTRIBUTION WIDTH 19.6 % (11.5-14.5)
[2018-01-31 08:04] LABS: WHITE BLOOD COUNT 7.8 10^3/ul (4.8-10.8)
[2018-01-31 08:26] LABS: ANION GAP 9 (8-16); BLOOD UREA NITROGEN 9 mg/dl (7-20); CALCIUM 7.9 mg/dl (8.4-10.2); CARBON DIOXIDE 26 mmol/L (21-31); CHLORIDE 95 mmol/L (97-110); CREATININE 0.95 mg/dl (0.61-1.24); GLUCOSE 91 mg/dl (70-220); MAGNESIUM 1.7 mg/dl (1.7-2.5); POTASSIUM 3.4 mmol/L (3.5-5.1); SODIUM 127 mmol/L (135-144)
[2018-01-31] MEDS: TRIAMCINOLONE ACET 0.025% 15 GM CR TOP ×2 (08:43→21:00)
[2018-01-31] MEDS: DORZOLAMIDE/TIMOLOL/PF 0.2 ML DROPERETTE BOTH EYES ×2 (08:43→21:38)
[2018-01-31] MEDS: MAGNESIUM SULFATE 2 GM/50 ML 50 ML IVPB (11:45)
[2018-01-31] MEDS: LATANOPROST 0.005% 2.5 ML OPH BOTH EYES (21:38)
[2018-01-31] MEDS: DOXAZOSIN 2 MG TAB PO (21:38)
[2018-02-01] MEDS: PANTOPRAZOLE 40 MG INJ IV (06:00)
[2018-02-01] MEDS: TRIAMCINOLONE ACET 0.025% 15 GM CR TOP (09:21)
[2018-02-01] MEDS: DORZOLAMIDE/TIMOLOL/PF 0.2 ML DROPERETTE BOTH EYES (09:21)
== END 2018-02-01 14:30 | disposition home health service (06) | DRG 329 ==
LOC: MS4 01-22 00:07 → MS2 10:17
PROC: 0DTK0ZZ Resection of Ascending Colon, Open Approach (ICD-10-PCS; principal; 2018-01-20 15:15)
PROC: 0DU Gastrointestinal System, Supplement (ICD-10-PCS; 2018-01-20 15:15)
PROC: 0DBK8ZX Excision of Ascending Colon, Via Natural or Artificial Opening Endoscopic, Diagnostic (ICD-10-PCS; 2018-01-20 15:15)
PROC: 30233N1 Transfusion of Nonautologous Red Blood Cells into Peripheral Vein, Percutaneous Approach (ICD-10-PCS; 2018-01-20 15:15)
DX: C18.2 Malignant neoplasm of ascending colon (principal); I50.33 Acute on chronic diastolic (congestive) heart failure; E87.1 Hypo-osmolality and hyponatremia; K92.1 Melena; K91.840 Postprocedural hemorrhage of a digestive system organ or structure following a digestive system procedure; D62 Acute posthemorrhagic anemia; N17.9 Acute kidney failure, unspecified; C61 Malignant neoplasm of prostate; D50.9 Iron deficiency anemia, unspecified; D63.8 Anemia in other chronic diseases classified elsewhere; D46.9 Myelodysplastic syndrome, unspecified; E78.5 Hyperlipidemia, unspecified; E83.51 Hypocalcemia; E88.09 Other disorders of plasma-protein metabolism, not elsewhere classified; E53.8 Deficiency of other specified B group vitamins; E87.6 Hypokalemia; G89.18 Other acute postprocedural pain; H40.9 Unspecified glaucoma; I11.0 Hypertensive heart disease with heart failure; K57.30 Diverticulosis of large intestine without perforation or abscess without bleeding; L85.3 Xerosis cutis; M19.90 Unspecified osteoarthritis, unspecified site; N47.1 Phimosis; N50.89 Other specified disorders of the male genital organs; R63.4 Abnormal weight loss; Z68.29 Body mass index [BMI] 29.0-29.9, adult; Z53.31 Laparoscopic surgical procedure converted to open procedure
CPT/HCPCS: 36430; 36600; 71045; 74176; 80048; 80053; 81001; 81003; 81270; 82270; 82378; 82728; 82784; 82803; 83540; 83615; 83735; 83880; 84153; 84154; 84155; 84165; 84560; 85014; 85018; 85025; 85610; 85730; 86301; 86320; 86850; 86900; 86901; 86920; 87086; 88305; 88309; 93005; 93970; 97110; 97116; 97162; 97530; J0885

== ENCOUNTER 2018-12-06 09:00 | Observation (INO) | payer BC, OTHER, MEDICARE ==
[2018-12-06 09:59] LABS: ADD MAN DIFF? NO
[2018-12-06 10:08] LABS: BASOPHILS % 0.4 % (0.0-2.0); EOSINOPHILS # 0.3 10^3/ul (0.0-0.5); EOSINOPHILS % 3.6 % (0.0-7.0); HEMATOCRIT 35.9 % (42.0-52.0); HEMOGLOBIN 12.4 g/dl (14.0-18.0); LYMPHOCYTES # 0.6 10^3/ul (0.8-2.9); LYMPHOCYTES % 8.2 % (15.0-51.0); MEAN CORPUSCULAR HEMOGLOBIN 32.6 pg (29.0-33.0); MEAN CORPUSCULAR HGB CONC 34.5 g/dl (32.0-37.0); MEAN CORPUSCULAR VOLUME 94.5 fl (82.0-101.0); MEAN PLATELET VOLUME 9.1 fl (7.4-10.4); MONOCYTE # 0.7 10^3/ul (0.3-0.9); MONOCYTES % 8.5 % (0.0-11.0); NEUTROPHIL # 6.1 10^3/ul (1.6-7.5); NEUTROPHILS % 78.9 % (39.0-77.0); PLATELET COUNT 227 10^3/UL (140-415); RED CELL DISTRIBUTION WIDTH 13.1 % (11.5-14.5)
[2018-12-06 10:08] LABS: WHITE BLOOD COUNT 7.8 10^3/ul (4.8-10.8)
[2018-12-06 10:17] LABS: ANION GAP 11 (5-13); BLOOD UREA NITROGEN 23 mg/dl (7-20); CALCIUM 9.1 mg/dl (8.4-10.2); CARBON DIOXIDE 29 mmol/L (21-31); CHLORIDE 92 mmol/L (97-110); CREATININE 1.16 mg/dl (0.61-1.24); GLUCOSE 104 mg/dl (70-220); POTASSIUM 4.5 mmol/L (3.5-5.1); SODIUM 132 mmol/L (135-144)
[2018-12-06 10:29] LABS: TROPONIN-I < 0.012 ng/ml (0.000-0.120)
[2018-12-06] MEDS ORDERED: ACETAMINOPHEN 325 MG TAB PO ×2 (12:00→13:00)
[2018-12-06] MEDS ORDERED: ONDANSETRON 4 MG INJ IV ×2 (12:00→13:00)
[2018-12-06] MEDS ORDERED: hydrALAzine 20 MG INJ IV (13:00)
[2018-12-06] MEDS: ATORVASTATIN 20 MG TAB PO (20:25)
[2018-12-07 07:02] LABS: ADD MAN DIFF? NO
[2018-12-07 07:14] LABS: BASOPHILS % 0.6 % (0.0-2.0); EOSINOPHILS # 0.3 10^3/ul (0.0-0.5); LYMPHOCYTES # 1.1 10^3/ul (0.8-2.9); LYMPHOCYTES % 17.4 % (15.0-51.0); MEAN CORPUSCULAR HEMOGLOBIN 32.3 pg (29.0-33.0); MEAN CORPUSCULAR HGB CONC 34.3 g/dl (32.0-37.0); MEAN CORPUSCULAR VOLUME 94.1 fl (82.0-101.0); MEAN PLATELET VOLUME 9.9 fl (7.4-10.4); MONOCYTE # 0.8 10^3/ul (0.3-0.9); MONOCYTES % 12.3 % (0.0-11.0); NEUTROPHILS % 64.4 % (39.0-77.0); PLATELET COUNT 206 10^3/UL (140-415); RED BLOOD COUNT 3.72 10^6/ul (4.70-6.10); RED CELL DISTRIBUTION WIDTH 13.2 % (11.5-14.5)
[2018-12-07 07:14] LABS: WHITE BLOOD COUNT 6.2 10^3/ul (4.8-10.8)
[2018-12-07 07:44] LABS: ALANINE AMINOTRANSFERASE 24 IU/L (13-69); ALBUMIN/GLOBULIN RATIO 1.25; ALKALINE PHOSPHATASE 101 IU/L (42-121); ANION GAP 12 (5-13); ASPARTATE AMINO TRANSFERASE 32 IU/L (15-46); BILIRUBIN,INDIRECT 0.3 mg/dl (0-1.1); BILIRUBIN,TOTAL 0.3 mg/dl (0.2-1.3); BLOOD UREA NITROGEN 25 mg/dl (7-20); CALCIUM 8.8 mg/dl (8.4-10.2); CARBON DIOXIDE 23 mmol/L (21-31); CHLORIDE 95 mmol/L (97-110); CREATININE 1.13 mg/dl (0.61-1.24); GLUCOSE 96 mg/dl (70-220); MAGNESIUM 1.7 mg/dl (1.7-2.5); SODIUM 130 mmol/L (135-144); TOTAL PROTEIN 7.2 g/dl (6.1-8.1)
[2018-12-07] MEDS: PANTOPRAZOLE (EC) 40 MG TAB PO (08:52)
[2018-12-07] MEDS: ASPIRIN 81 MG TAB PO (08:52)
[2018-12-07] MEDS ORDERED: DORZOLAMIDE 2% 10 ML OPH BOTH EYES (09:00)
[2018-12-07] MEDS: MAGNESIUM SULFATE 2 GM/50 ML 50 ML IVPB (10:04)
[2018-12-07] MEDS: DORZOLAMIDE 2% 10 ML OPH BOTH EYES (10:04)
[2018-12-07 13:00] LABS: TROPONIN-I 0.119 ng/ml (0.000-0.120)
[2018-12-07] MEDS: ATORVASTATIN 20 MG TAB PO (20:18)
[2018-12-08] MEDS: LEVOFLOXACIN 500 MG TAB GTB (05:56)
[2018-12-08 07:23] LABS: ADD MAN DIFF? NO
[2018-12-08 07:28] LABS: WHITE BLOOD COUNT 6.4 10^3/ul (4.8-10.8)
[2018-12-08 07:28] LABS: BASOPHILS % 0.3 % (0.0-2.0); EOSINOPHILS # 0.4 10^3/ul (0.0-0.5); EOSINOPHILS % 6.1 % (0.0-7.0); HEMATOCRIT 35.1 % (42.0-52.0); HEMOGLOBIN 12.2 g/dl (14.0-18.0); LYMPHOCYTES # 1.3 10^3/ul (0.8-2.9); LYMPHOCYTES % 20.2 % (15.0-51.0); MEAN CORPUSCULAR HEMOGLOBIN 31.9 pg (29.0-33.0); MEAN CORPUSCULAR HGB CONC 34.8 g/dl (32.0-37.0); MEAN CORPUSCULAR VOLUME 91.6 fl (82.0-101.0); MEAN PLATELET VOLUME 9.3 fl (7.4-10.4); MONOCYTE # 0.7 10^3/ul (0.3-0.9); MONOCYTES % 10.7 % (0.0-11.0); NEUTROPHILS % 62.4 % (39.0-77.0); PLATELET COUNT 224 10^3/UL (140-415); RED BLOOD COUNT 3.83 10^6/ul (4.70-6.10); RED CELL DISTRIBUTION WIDTH 13.2 % (11.5-14.5)
[2018-12-08 07:46] LABS: ANION GAP 10 (5-13); BLOOD UREA NITROGEN 27 mg/dl (7-20); CALCIUM 8.8 mg/dl (8.4-10.2); CARBON DIOXIDE 26 mmol/L (21-31); CHLORIDE 95 mmol/L (97-110); CREATININE 1.03 mg/dl (0.61-1.24); GLUCOSE 94 mg/dl (70-220); MAGNESIUM 1.9 mg/dl (1.7-2.5); POTASSIUM 4.1 mmol/L (3.5-5.1); SODIUM 131 mmol/L (135-144)
[2018-12-08 07:56] LABS: TROPONIN-I 0.069 ng/ml (0.000-0.120)
[2018-12-08] MEDS: DORZOLAMIDE 2% 10 ML OPH BOTH EYES (08:36)
[2018-12-08] MEDS: PANTOPRAZOLE (EC) 40 MG TAB PO (09:00)
[2018-12-08] MEDS: ASPIRIN 81 MG TAB PO (09:00)
[2018-12-08] MEDS: REGADENOSON 0.4 MG/5 ML SYG (11:38)
== END 2018-12-08 14:15 | disposition home or self-care (01) ==
LOC: E/R 09:00 → TEL 11:32
PROVIDERS: Internal Medicine
DX: R55 Syncope and collapse (principal); I10 Essential (primary) hypertension; E78.5 Hyperlipidemia, unspecified; E87.1 Hypo-osmolality and hyponatremia; D64.9 Anemia, unspecified; H40.9 Unspecified glaucoma; N40.0 Benign prostatic hyperplasia without lower urinary tract symptoms; J32.9 Chronic sinusitis, unspecified; E83.42 Hypomagnesemia; Z85.038 Personal history of other malignant neoplasm of large intestine; Z79.82 Long term (current) use of aspirin; Z87.891 Personal history of nicotine dependence
CPT/HCPCS: 36415; 70450; 78452; 80048; 80053; 82962; 83735; 84484; 85025; 87086; 93005; 93017; 93306; 93880; 97162; 99285-25; G0378